=== PATIENT | female | born 1995 | race American Indian/Alaskan Native ===

== ENCOUNTER 2016-06-29 02:31 | Outpatient (CLI) | payer OTHER ==
[2016-06-29] MEDS ORDERED: LACTATED RINGERS 500 ML IV ONE (02:39)
[2016-06-29 03:02] VITALS: BP 117/78
[2016-06-29] MEDS ORDERED: TYLENOL PO ONE (03:05)
== END 2016-06-29 03:19 | disposition home or self-care (01) ==
LOC: TRG 02:31
PROVIDERS: ATTEND Obstetrics & Gynecology
DX: O77.9 Labor and delivery complicated by fetal stress, unspecified (principal); O47.9 False labor, unspecified; Z3A.00 Weeks of gestation of pregnancy not specified
CPT/HCPCS: 59025; J7120